=== PATIENT | female | born 1955 | race Caucasian/White ===

== ENCOUNTER → 2019-10-24 13:55 | Outpatient (REF) | payer MEDICARE, OTHER, SELFPAY | LOC: ANHLAB 13:55 | PROVIDERS: Visit Provider Nurse Practitioner | DX: D49.2 Neoplasm of unspecified behavior of bone, soft tissue, and skin (principal); L81.9 Disorder of pigmentation, unspecified | CPT/HCPCS: 88305 ==

== ENCOUNTER 2020-08-16 13:07 | Observation (INO) | payer MEDICARE, OTHER, SELFPAY ==
--- NOTE | ~2020-08-16 | US_ITS ---
EXAMINATION: US pelvic complete w TV DATE: 08/17/2020 13:50 INDICATION: Thickened endometrium by CT Comparison:CT dated 08/16/2020 TECHNIQUE: Multiple transabdominal sonographic images of the pelvis performed. Patient could not tole rate transvaginal examination. FINDINGS: Study is extremely limited due to incomplete bladder filling and lack of transvaginal exami nation. The uterus measures 6 x 2.8 x 2.8 cm. The endometrial complex is not adequately visualized fo r evaluation. The ovaries are not visualized. No significant free fluid. IMPRESSION: 1. Limited examination. Endometrium not adequately visualized. The uterus is grossly unremarkable. Reviewed, dictated and finalized at location B. IMPRESSION: 1. Limited examination. Endometrium not adequately visualized. The uterus is gr ossly unremarkable.
--- NOTE | ~2020-08-16 | CT_ITS ---
EXAMINATION: CT brain wo con DATE: 08/16/2020 13:22 INDICATION: Dizziness TECHNIQUE: Computed tomography (CT) of the head was performed without intravenous contrast. Sagittal and coronal reconstructions were performed. The mA was adjusted according to patient size. Iterative reconstruction technique was employed. The dose-length product was 605.33 mGy-cm. COMPARISON: None FINDINGS: No acute intracranial hemorrhage, acute infarction or abnormal extra axial fluid collection. There is mild scattered white matter hypoattenuation consistent with chronic small vessel ischemic disease. V entricles are normal and symmetric. No mass/mass effect. Leftward bowing of the nasal septum. The orb its, paranasal sinuses and mastoid air cells are normal. IMPRESSION: 1. Mild scattered white matter hypoattenuation consistent with chronic small vessel ischemic disease. No acute intracranial process. Reviewed, dictated and finalized at location A. IMPRESSION: 1. Mild scattered white matter hypoattenuation consistent with chronic small ve ssel ischemic disease. No acute intracranial process.
--- NOTE | ~2020-08-16 | CT_ITS ---
EXAMINATION: CT abdomen pelvis w con EXAM DATE: 08/16/2020 16:47 INDICATION: Abdominal pain. TECHNIQUE: Spiral CT of the abdomen and pelvis was performed following intravenous injection of 100 m L Omnipaque 350. Axial, coronal and sagittal images were reviewed. The dose-length product (DLP) fo r this examination was 302.05 mGy-cm. The exposure was tailored according to patient size (auto mA e xposure control), and iterative reconstruction (ASIR) was used as additional dose reduction technique . There is no prior study for comparison. Correlation was made with chest x-ray same date. FINDINGS: The liver, spleen, adrenal glands and pancreas are unremarkable. There are surgical clips in the gallbladder fossa. Some biliary duct dilation which is common finding following cholecystecto my. Portal and splenic veins are patent. Kidneys enhance symmetrically. There is no hydronephrosis . The endometrium of the uterus is hypodense, and appears to be most likely thickened to about 1.4 cm. Differential diagnosis includes endometrial cancer and hyperplasia. The bladder is unremarkable. The re is no retroperitoneal or pelvic lymphadenopathy. The appendix is not positively visualized. There is no pericecal inflammatory change to suggest appe ndicitis. The stomach and small bowel are unremarkable. There is expected amount of colonic stool. No free intraperitoneal gas. The heart is normal in size. There are no pericardial or pleural e ffusions. Dependent subsegmental atelectasis. There are no osteoblastic or osteolytic lesions ident ified. There is mild lumbar dextroscoliosis. IMPRESSION: 1. Low-density endometrium, which also appears thickened for postmenopausal status, differential ari gnosis includes hyperplasia and endometrial cancer; recommend follow-up pelvic sonogram for further e valuation. 2. No acute intra-abdominal findings. Reviewed, dictated and finalized at location A. IMPRESSION: 1. Low-density endometrium, which also appears thickened for postmenopausal st atus, differential diagnosis includes hyperplasia and endometrial cancer; recom mend follow-up pelvic sonogram for further evaluation. 2. No acute intra-abdominal findings.
--- NOTE | ~2020-08-16 | MR_ITS ---
EXAMINATION: MR brain/brain stem wo/w con EXAM DATE: 08/17/2020 08:54 INDICATION: Severe dizziness r/o posterior CVA . TECHNIQUE: Magnetic resonance imaging (MRI) of the brain/brain stem obtained without contrast. Sagit stephan T1, axial diffusion, gradient echo (T2*), T1, T2, FLAIR sequences obtained. Patient was then inj ected with 10 cc intravenous Multihance contrast. Axial and coronal postcontrast T1 weighted sequence s obtained. Correlation is made to head CT 08/16/2020. FINDINGS: Posterior fossa is unremarkable. There are no areas of restricted diffusion to suggest acut e infarction. There is no acute hemorrhage seen on the T2*, a hemosiderin sensitive sequence. No in traparenchymal brain mass lesion. There is mild periventricular and subcortical T2/FLAIR signal hyper intensity, nonspecific but probably related to small vessel ischemic disease (microangiopathy). The re are no extra-axial collections. Flow voids are seen in the cerebral arteries on the T2-weighted s equences consistent with their expected patency. The orbits are unremarkable. Soft tissue is unrema rkable. IMPRESSION: 1. No acute intracranial findings. 2. Mild microangiopathy. Reviewed, dictated and finalized at location A.
--- NOTE | ~2020-08-16 | XR_ITS ---
EXAMINATION: XR chest 1V EXAM DATE: 08/16/2020 13:29 INDICATION: Vomiting. Dizziness. TECHNIQUE: Frontal AP sitting chest x-ray. There is no prior study for comparison. FINDINGS: The lungs are clear. There are no pleural effusions. The cardiomediastinal silhouette is within normal limits. There is no pneumothorax suspected. The bones and soft tissues are unremarkab le. There are cholecystectomy clips. IMPRESSION: No acute cardiopulmonary findings. Reviewed, dictated and finalized at location A.
--- NOTE | 2020-08-16 13:09 | ECG_ITS ---
Measurements Intervals [place] Rate: 72 P: 57 TX: 140 QRS: -1 QRSD: 85 T: 9 QT: 408 QTc: 449 Interpretive Statements SINUS RHYTHM LOW QRS VOLTAGE IN PRECORDIAL LEADS BASELINE ARTIFACT- I, III, AVL, V2 BORDERLINE ECG Electronically Signed On 08-16-2020 17:18:59 CDT by Phuc Farmer D.O.
--- NOTE | 2020-08-16 13:10 | ED.DIZZY ---
HPI - Dizziness General Chief Complaint: Dizziness Stated Complaint: sudden onset dizziness, nausea Source: RN notes reviewed History of Present Illness HPI Narrative: Patient presents emergency department from home via EMS for dizziness. Patient states symptoms began approximately 1 hour ago. States that was spinning and associated with nausea and vomiting. Patient states symptoms are worse with opening the eyes. Patient was given Zofran 4 mg by EMS. Patient states she felt fine prior to this episode starting she denies any fevers or chills vision changes numbness or tingling in the extremities chest pain shortness of breath or any other symptoms Related Data Home Medications Medication Instructions Recorded Confirmed levothyroxine 25 mcg capsule 25 mcg PO DAILY 07/24/20 losartan 50 mg tablet 50 mg PO DAILY 07/24/20 omeprazole 40 mg capsule,delayed 40 mg PO DAILY 07/24/20 release Allergies Allergy/AdvReac Type Severity Reaction Status Date / Time atorvastatin [From Lipitor] AdvReac Other Verified 08/16/20 13:36 Review of Systems Review of Systems: Narrative: Gen.: Denies fevers or chills Eyes: Denies eye pain or visual change ENT: Denies congestion Respiratory: Denies shortness of breath or cough CV: Denies chest pain or palpitations GI: Denies abdominal pain reports nausea vomiting denies burning, urgency, frequency or hematuria Musculoskeletal: Denies back pain or muscle pain Neuro: Reports dizziness Skin: Denies rash Except as documented, all other systems reviewed and negative [facility] Past Medical History Medical History (Updated 08/16/20 @ 18:31 by Son Guzman DO) Hypertension Surgical History Surgical History History of History of cholecystectomy Social History Social History Smoking status: Never smoker Exam Narrative: Exam Narrative: APPEARANCE: No acute distress, nontoxic, resting in bed EYES: EOMI, PERRL HEENT: Normocephalic, atraumatic, OMM RESPIRATORY: No respiratory distress Clear to auscultation bilaterally with no rhonchi wheezing or rales. CARDIOVASCULAR: Regular rate and rhythm without murmurs rubs or gallops. ABDOMINAL: Soft, nontender, nondistended, no rebound or guarding MUSCULOSKELETAl: Moves all extremities. No clubbing, cyanosis or edema. NEURO: Awake and alert x 4. Following commands, speech normal, no focal deficits no facial droop, muscle strength 5 out of 5 bilateral upper and lower extremities no pronator SKIN:: Warm, dry. No rashes lesions or abrasions PSYCHIATRIC: Normal affect/mood, Course Course Emergency Course: Patient now with complaint of abdominal pain on exam turn palpation left upper quadrant left lower quadrant obtain CT scan at this time Continues to have dizziness and nausea will admit Problem discussed with SMILEY Spaulding to Dr. Macias presentation work-up agrees with admission at this time Discussed with patient and family results of work-up and diagnosis discussed need for mission agreement this time. We did discussed thickened endometrium and need for further outpatient work-up Vital Signs Vital signs: Vital Signs Temperature 98.0 F 08/16/20 13:32 Pulse Rate 77 08/16/20 13:32 Respiratory Rate 18 08/16/20 13:32 Blood Pressure 138/80 08/16/20 13:32 Pulse Oximetry 99 08/16/20 13:32 Temperature 98.0 F 08/16/20 13:32 Pulse Rate 77 08/16/20 17:17 Respiratory Rate 18 08/16/20 17:17 Blood Pressure 139/86 08/16/20 17:17 Pulse Oximetry 98 08/16/20 15:49 MDM - Dizziness Lab Data Result diagrams: 08/16/20 15:21 08/16/20 15:21 Labs: Lab Results 08/16/20 08/16/20 08/16/20 Range/Units 15:21 15:21 15:21 WBC 12.1 H (4.5-10.0) K/mm3 RBC 4.08 L (4.2-5.4) M/mm3 Hgb 13.0 (12.0-15.0) g/dL Hct 38.0 (37.0-47.0) % MCV 93.1 (80-100) fl
[2020-08-16 13:32] VITALS: BP 138/80; PULSE 77; RESP 18; TEMP 36.7; O2SAT 99
[2020-08-16] MEDS: MECLIZINE HCL 25 MG TABLET PO (13:42)
[2020-08-16] MEDS: SODIUM CHLORIDE 0.9% IV 1,000 ML 999 ML IV CONT (13:42)
[2020-08-16] MEDS: diazePAM INJ (*CRX) 10 MG/2 ML SYRINGE 2 MG IV PUSH (14:18)
[2020-08-16 15:29] LABS: Basophils Absolute Auto 0.1 K/mm3 (0.0-0.1); Basophils Percent Auto 0.4 % (0.2-1.2); Eosinophils Percent Auto 0.1 % (0-4.4); Immature Granulocyte Absolute 0.04 K/mm3 (0.00-0.031); Immature Granulocyte Percent A 0.3 % (0-0.5); Lymphocytes Absolute Auto 0.97 K/mm3 (0.9-3.2); Mean Corpuscular HGB Conc 34.2 g/dl (32-36); Mean Corpuscular Hemoglobin 31.9 pg (26-34); Mean Corpuscular Volume 93.1 fl (80-100); Mean Platelet Volume 9.2 fl (7.4-10.4); Monocytes Absolute Auto 0.4 K/mm3 (0.1-0.6); Monocytes Percent Auto 3.5 % (2.6-8.5); Neutrophils Absolute Auto 10.6 K/mm3 (1.3-6.7); Neutrophils Percent Auto 87.7 % (45.5-73.1); Platelet Count Result 231 k/mm3 (150-375); Red Blood Count 4.08 M/mm3 (4.2-5.4); Red Cell Distribution Width 11.9 % (11.5-14.5); White Blood Count 12.1 K/mm3 (4.5-10.0)
[2020-08-16 15:39] LABS: INR 0.9; Prothrombin Time 12.7 Seconds (11.1-14.7)
[2020-08-16 15:40] LABS: Lipase 42 U/L (23-300); Partial Thromboplastin Time 24.5 SECONDS (22.3-36.8)
[2020-08-16 15:49] VITALS: BP 141/75; PULSE 72; RESP 18; O2SAT 98
[2020-08-16 15:51] LABS: Alanine Aminotransferase 22 U/L (4-35); Albumin Level 4.2 g/dL (3.5-5.1); Alkaline Phosphatase 47 U/L (38-126); Anion Gap 5 mmol/L (8-16); Aspartate Amino Transferase 30 U/L (14-36); Bilirubin,Total 0.6 mg/dL (0.2-1.3); Blood Urea Nitrogen 22 mg/dL (7-17); Calcium 8.6 mg/dL (8.4-10.2); Carbon Dioxide 30 mmol/L (22-30); Chloride 104 mmol/L (98-107); Estimated CRCL calculation 50 ml/min; Estimated Glomerular Filt Rate > 60; Glucose 117 mg/dL (65-105); Sodium 139 mmol/L (137-145)
[2020-08-16 15:57] LABS: Troponin I < 0.012 ng/mL (0.000-0.034)
[2020-08-16 16:05] VITALS: BP 138/71; BP 140/73; BP 147/83
--- NOTE | 2020-08-16 16:06 | PC.NURSE ---
patient states she is not willing to try to get up to go to bathroom to provide urine specimen and refuses to use bedpan or to be cathed
[2020-08-16] MEDS: PROMETHAZINE HCL 25 MG/ML AMPUL 12.5 MG IV PUSH (17:16)
[2020-08-16 17:17] VITALS: BP 139/86; PULSE 77; RESP 18
[2020-08-16 17:27] LABS: Add Urine Microscopic? YES; Appearance Urine Cloudy (Clear); Bacteria Urine Trace /hpf; Bilirubin Urine Negative (Negative); Blood Urine Negative (Negative); Color Urine Yellow (Yellow); Glucose Urine UA Negative (Negative); Ketones Urine Trace mg/dL (Negative); Leukocyte Esterase Ur 3+ LEU/UL (Negative); Mucus Urine Rare /lpf; Nitrate Urine Negative (Negative); Protein Urine 1+ mg/dL (Negative); Squamous Epithelial Cell Urine Many /hpf (Few); Urobilinogen Urine Negative mg/dL (<2.0); WBC Urine >75 /hpf
--- NOTE | 2020-08-16 19:35 | ADMGEN ---
This patient, Ramesh Henderson, was admitted to Medical Room 345-01. Patient/family oriented to hospital policies and general routines including ID bracelet, bed and alarms, visiting hours, pain management, procedures, bathroom and other care routines, personal items, smoking policy, room service/diet, and visiting hours. Information on how to activate the Rapid Response Team has been discussed. Patient/Family are encouraged to report perceived risks to care and to ask questions if they do not understand what they are told or what they should do.
[2020-08-16] MEDS: ONDANSETRON INJ 4 MG/2 ML VIAL IV PUSH (19:40)
[2020-08-16] MEDS: SODIUM CHLORIDE 0.9% IV 1,000 ML 100 ML IV CONT (19:42)
[2020-08-16 20:27] VITALS: BP 138/67; PULSE 76; RESP 16; TEMP 36.4; O2SAT 100; BMI 24.4
[2020-08-16 20:57] LABS: Troponin I < 0.012 ng/mL (0.000-0.034)
--- NOTE | 2020-08-16 21:14 | PM.IMHP ---
H&P: HPI History of Present Illness Date/Time: 08/16/20 21:14 Chief Complaint: Severe dizziness since 10:30 am. Narrative: This is a pleasant 65-year-old female with known past medical history of chronic hypertension, hypothyroidism, and acid reflux who presented to the hospital with a complaint of ongoing dizziness that started around 10:30 a.m. this morning. Patient was apparently taking care of her grand kids when suddenly she started to feel very dizzy. She describes not doing anything exertional when her symptoms began today abruptly. Associated symptoms included diaphoresis, nausea. and vomiting. The patient's symptoms seem to worsen with head movement and nothing seems to alleviate her symptoms. The patient was evaluated emergency room and head CT was performed which was unremarkable for any acute pathology. Routine labs demonstrated an abnormal urinalysis. She was treated with diazepam and meclizine although she continues to still have dizziness. On my encounter with the patient she continues to complain about a sensation of lightheadedness and dizziness. She denies any headache, fevers, chills, hearing loss, ringing in her ears, chest pain, shortness of breath, abdominal pain, dysuria, hematuria, diarrhea, rectal bleeding, lower extremity swelling, numbness, tingling, slurred speech, facial droop, double vision, or focal weakness. The patient's symptoms do not improve with fixation on single-point. She denies ever having dizziness like this in the past. She has no previous history of strokes. She also denies stopping any medications recently. Her only medication she has been started on recently was Phenergan and this was in April. The patient has been admitted to the hospital for further care. She has no other complaints this time. Review of Systems Review of Systems: All systems reviewed & are unremarkable except as noted in HPI and below PMFSH Past Medical History Medical History (Updated 08/16/20 @ 21:25 by Dexter Urrutia MD) GERD (gastroesophageal reflux disease) Hyperlipidemia Hypertension Hypothyroidism Surgical History Surgical History History of History of cholecystectomy Family History Family History Sibling Uterine cancer Mother Heart disease Social History Social History Smoking status: Never smoker Alcohol intake: never Substance use: never Gender identity (if verbalized by the patient): Male Spiritual care concerns: No Meds Home Medications and Allergies Home Medications Medication Instructions Recorded Confirmed Type levothyroxine 25 mcg capsule 25 mcg PO DAILY 07/24/20 08/16/20 History losartan 50 mg tablet 50 mg PO HS 07/24/20 08/16/20 History omeprazole 40 mg capsule,delayed 40 mg PO HS 07/24/20 08/16/20 History release simvastatin 20 mg PO HS 08/16/20 08/16/20 History Allergies Allergy/AdvReac Type Severity Reaction Status Date / Time atorvastatin [From Lipitor] AdvReac Other Verified 08/16/20 19:46 Vital Signs Vital Signs - 24 hr 08/16/20 13:32 08/16/20 15:49 08/16/20 16:05 Temperature 36.7 C Pulse Rate 77 72 Respiratory Rate 18 18 Blood Pressure 138/80 141/75 H 138/71 Pulse Oximetry 99 98 08/16/20 17:17 08/16/20 20:27 Temperature 36.4 C Pulse Rate 77 76 Respiratory Rate 18 16 Blood Pressure 139/86 138/67 Pulse Oximetry 100 Exam Const: General: cooperative, healthy appearing, alert, awake and ill appearing Nutritional Appearance: well nourished Orientation/consciousness: patient oriented x3 HENMT: Head: normal to inspection General nose exam: Normal external nose present Face and sinus: normal facial exam Mouth: Yes Normal oral and palatal mucosa present and Yes oropharynx normal Eyes: Pupils: Equal, round and reactive pupils present EOM: EO
[2020-08-16 21:54] VITALS: BP 138/67; PULSE 76; RESP 16; TEMP 36.4; O2SAT 100
[2020-08-16] MEDS: SIMVASTATIN 20 MG TABLET PO (22:33)
[2020-08-16] MEDS: LOSARTAN POTASSIUM 50 MG TABLET PO (22:33)
[2020-08-16] MEDS: ASPIRIN 81 MG CHEWABLE TABLET 324 MG PO (22:33)
[2020-08-16 23:49] LABS: Troponin I < 0.012 ng/mL (0.000-0.034)
[2020-08-17] VITALS: PULSE 66
[2020-08-17 04:00] VITALS: PULSE 67
[2020-08-17] MEDS: LEVOTHYROXINE SODIUM 25 MCG TABLET PO (05:37)
[2020-08-17 05:40] LABS: Basophils Absolute Auto 0.1 K/mm3 (0.0-0.1); Basophils Percent Auto 0.6 % (0.2-1.2); Eosinophils Absolute Auto 0.1 K/mm3 (0-0.3); Eosinophils Percent Auto 1.2 % (0-4.4); Hematocrit 37.4 % (37.0-47.0); Hemoglobin 12.8 g/dL (12.0-15.0); Immature Granulocyte Absolute 0.03 K/mm3 (0.00-0.031); Immature Granulocyte Percent A 0.3 % (0-0.5); Lymphocytes Absolute Auto 3.01 K/mm3 (0.9-3.2); Lymphocytes Percent Auto 34.8 % (18.3-44.2); Mean Corpuscular HGB Conc 34.2 g/dl (32-36); Mean Corpuscular Hemoglobin 31.4 pg (26-34); Mean Corpuscular Volume 91.7 fl (80-100); Mean Platelet Volume 9.1 fl (7.4-10.4); Monocytes Absolute Auto 0.7 K/mm3 (0.1-0.6); Monocytes Percent Auto 8.4 % (2.6-8.5); Neutrophils Absolute Auto 4.7 K/mm3 (1.3-6.7); Neutrophils Percent Auto 54.7 % (45.5-73.1); Platelet Count Result 252 k/mm3 (150-375); Red Blood Count 4.08 M/mm3 (4.2-5.4); Red Cell Distribution Width 11.9 % (11.5-14.5); White Blood Count 8.6 K/mm3 (4.5-10.0)
[2020-08-17] MEDS: SODIUM CHLORIDE 0.9% IV 1,000 ML 100 ML IV CONT (05:40)
[2020-08-17 06:00] VITALS: BP 117/60; PULSE 81; RESP 18; TEMP 36.4; O2SAT 98
[2020-08-17 06:30] LABS: Alanine Aminotransferase 20 U/L (4-35); Albumin Level 3.8 g/dL (3.5-5.1); Alkaline Phosphatase 47 U/L (38-126); Anion Gap 3 mmol/L (8-16); Aspartate Amino Transferase 26 U/L (14-36); Bilirubin,Total 0.9 mg/dL (0.2-1.3); Blood Urea Nitrogen 13 mg/dL (7-17); Calcium 8.7 mg/dL (8.4-10.2); Carbon Dioxide 30 mmol/L (22-30); Chloride 106 mmol/L (98-107); Estimated CRCL calculation 43 ml/min; Estimated Glomerular Filt Rate > 60; Glucose 84 mg/dL (65-105); Potassium 3.9 mmol/L (3.4-5.0); Sodium 139 mmol/L (137-145)
[2020-08-17 06:58] LABS: Folic Acid > 20.0 ng/mL (2.76->20)
[2020-08-17 08:00] VITALS: PULSE 83
[2020-08-17] MEDS: PANTOPRAZOLE 40 MG TABLET PO (08:14)
[2020-08-17 12:00] VITALS: PULSE 77
--- NOTE | 2020-08-17 13:31 | WPDNEURCNPN ---
Assessment and Plan Assessment and plan (1) Dizziness: Code(s): R42 - Dizziness and giddiness Status: Acute Additional Plan labyrinth tiny dysfunction with the acute symptomatology of dizziness and also with negative CT scan of the head normal MRI of the brain she can be treated symptomatically with Antivert on p.r.n. basis Consult date: 08/17/20 Time Seen: 01:15 HPI: Ramesh Henderson is a 65 year old female Admitted to the hospital for the complaints of severe dizziness since morning in addition to ongoing history of 1. Hypertension 2. Hypothyroidism 3. GERD apparently patient was taking care of her grandkids when suddenly she became dizzy along with diaphoresis nausea and vomiting and worsening of the symptomatology with any kind of movements initial she was evaluated in the emergency room where CT scan of the head was negative for any acute bleed routine UA was negative for any signs of infection and she had no history of associated generalized symptomatology was admitted to hospital for further evaluation particularly to differentiate between the TIA and the labyrinthian dysfunction. as mentioned before she does have ongoing history of hyperlipidemia with hypertension and hypothyroidism. she had been taking Synthroid 25 mg capsule daily, losartan 50 mg daily, omeprazole 40 mg daily, and simvastatin 20 mg at night ,her vital signs were stable, and subsequent evaluation included the routine lab studies which were normal particularly she was not diabetic glucose was 84 but urine revealed 3+ leukocyte esterase with 7 more than 75 wbc's and the culture at this time is pending. MRI of the brain so as the CT scan of the head both studies were normal Review of Systems Review of Systems: All systems reviewed & are unremarkable except as noted in HPI and below PMFSH Past Medical History Medical History GERD (gastroesophageal reflux disease) Hyperlipidemia Hypertension Hypothyroidism Surgical History Surgical History History of History of cholecystectomy Family History Family History Sibling Uterine cancer Mother Heart disease Social History Social History Smoking status: Never smoker Alcohol intake: never Substance use: never Gender identity (if verbalized by the patient): Male Spiritual care concerns: No Meds Home Medications and Allergies Home Medications Medication Instructions Recorded Confirmed Type levothyroxine 25 mcg capsule 25 mcg PO DAILY 07/24/20 08/16/20 History losartan 50 mg tablet 50 mg PO HS 07/24/20 08/16/20 History omeprazole 40 mg capsule,delayed 40 mg PO HS 07/24/20 08/16/20 History release simvastatin 20 mg PO HS 08/16/20 08/16/20 History Allergies Allergy/AdvReac Type Severity Reaction Status Date / Time atorvastatin [From Lipitor] AdvReac Other Verified 08/16/20 19:46 Vital Signs Vital Signs - 24 hr 08/16/20 13:32 08/16/20 15:49 08/16/20 16:05 Temperature 36.7 C Pulse Rate 77 72 Respiratory Rate 18 18 Blood Pressure 138/80 141/75 H 138/71 Pulse Oximetry 99 98 08/16/20 17:17 08/16/20 20:27 08/16/20 21:54 Temperature 36.4 C 36.4 C Pulse Rate 77 76 76 Respiratory Rate 18 16 16 Blood Pressure 139/86 138/67 138/67 Pulse Oximetry 100 100 08/17/20 00:00 08/17/20 04:00 08/17/20 06:00 Temperature 36.4 C Pulse Rate 66 67 81 Respiratory Rate 18 Blood Pressure 117/60 Pulse Oximetry 98 08/17/20 08:00 08/17/20 12:00 Temperature Pulse Rate 83 77 Respiratory Rate Blood Pressure Pulse Oximetry Exam Const: General: cooperative, no acute distress and alert Nutritional Appearance: average body habitus and well nourished Limitations: no limitations Eyes: General: appearance normal, both eyes and all related structur
[2020-08-17 14:00] VITALS: BP 124/60; PULSE 81; RESP 16; TEMP 36.7; O2SAT 100
--- NOTE | 2020-08-17 14:41 | PM.DS ---
DS: Admitting Diagnosis Admitting Diagnosis Admitting Diagnosis: Dizziness DS: Discharge Diagnosis Discharge Diagnosis (1) Dizziness: Code(s): R42 - Dizziness and giddiness Status: Acute (2) Nausea and vomiting: Qualifiers: Vomiting Intractability: non-intractable Vomiting type: unspecified Qualified Code(s): R11.2 - Nausea with vomiting, unspecified Code(s): R11.2 - Nausea with vomiting, unspecified Status: Acute (3) Abnormal urinalysis: Code(s): R82.90 - Unspecified abnormal findings in urine Status: Acute (4) Leukocytosis: Qualifiers: Leukocytosis type: unspecified Qualified Code(s): D72.829 - Elevated white blood cell count, unspecified Code(s): D72.829 - Elevated white blood cell count, unspecified Status: Acute (5) Hypothyroidism: Qualifiers: Hypothyroidism type: unspecified Qualified Code(s): E03.9 - Hypothyroidism, unspecified Code(s): E03.9 - Hypothyroidism, unspecified Status: Chronic (6) GERD (gastroesophageal reflux disease): Qualifiers: Esophagitis presence: esophagitis presence not specified Qualified Code(s): K21.9 - Gastro-esophageal reflux disease without esophagitis Code(s): K21.9 - Gastro-esophageal reflux disease without esophagitis Status: Chronic (7) Hypertension: Qualifiers: Hypertension type: unspecified Qualified Code(s): I10 - Essential (primary) hypertension Code(s): I10 - Essential (primary) hypertension Status: Chronic (8) Hyperlipidemia: Qualifiers: Hyperlipidemia type: unspecified Qualified Code(s): E78.5 - Hyperlipidemia, unspecified Code(s): E78.5 - Hyperlipidemia, unspecified Status: Chronic DS: Summary Hospital Course Reason for hospitalization: Patient is a 65-year-old woman with a history of chronic hypertension, hypothyroidism, GERD, who presented emergency room with dizziness that began around 10 30 this morning. The patient had been feeling well prior to 10 30 when she suddenly began feeling very dizzy, nauseous, diaphoretic with an episode of vomiting in the emergency room. Patient does have a history of urinary tract infections. Initial vitals showed she was afebrile, normal heart rate, normal respiratory rate, normal blood pressure, normal oxygenation on room air. Initial labs showed leukocytosis with elevated neutrophils, normal coag panel, CMP was normal with slightly elevated BUN at 22 and glucose at 117. Negative troponin x3. Urinalysis was slightly abnormal cloudy, 1+ protein, 3+ leukocyte esterase, WBCs greater than 75 but many squamous cells were noted. CT brain showed scattered white matter hypoattenuation consistent with chronic small vessel ischemic disease. No acute intracranial process. CXR showed no acute abnormality. CT abd/pelvis showed No acute intra-abdominal findings. Patient was admitted to the hospital to get an MRI brain to rule out acute stroke causing her sudden dizziness, IV fluids, NPO status, monitor with antiemetics and p.r.n. meclizine as needed for dizziness. Neurology was consulted. MRI brain showed no acute intracranial findings. Mild microangiopathy. Dr. Villatoro evaluated the patient and diagnosed her with labyrinth tiny dysfunction with the acute symptomatology of dizziness. Instructor to be treated symptomatically with Antivert p.r.n. for dizziness. Patient did have abnormal urine and culture is now negative for any infection. She had been given oral antibiotics for UTI upon discharge. On her abdominal CT showed Low-density endometrium, which also appears thickened for postmenopausal status, differential diagnosis includes hyperplasia and endometrial cancer; recommend follow-up pelvic sonogram for further evaluation. We obtained a Pelvic/Transvag US, but the patient could not tolerate the transvaginal part of the examination and the US was not ideal. Endometrium not a
[2020-08-17] MEDS: CEFDINIR 300 MG CAPSULE PO (19:27)
== END 2020-08-17 19:29 | disposition home or self-care (01) ==
LOC: ANHED 18:31 → ANH3MED 19:16
PROVIDERS: Family Medicine; Admitting Provider Internal Medicine; Emergency Provider Emergency Medicine; PCP Nurse Practitioner; Visit Provider Physician Assistant
DX: R42 Dizziness and giddiness (principal); R11.2 Nausea with vomiting, unspecified; R82.90 Unspecified abnormal findings in urine; D72.829 Elevated white blood cell count, unspecified; I10 Essential (primary) hypertension; E03.9 Hypothyroidism, unspecified; K21.9 Gastro-esophageal reflux disease without esophagitis; E78.5 Hyperlipidemia, unspecified
CPT/HCPCS: 36415; 70450; 70553; 71045; 74177; 76830; 76856; 80053; 81001; 82607; 82746; 83690; 84443; 84484; 85025; 85610; 85730; 87086; 93005; 96361; 96365; 96375; 99285; A9270; A9577; G0378; J0696; J2405; J2550; J3360; J7030; Q9967